=== PATIENT | male | born 1970 | race Caucasian/White ===

== ENCOUNTER 2016-11-03 07:39 | Day surgery (SDC) | payer OTHER ==
[~2016-11-03] VITALS: Ht 165.1 cm; Wt 65.0 kg
[2016-11-03] VITALS (14 sets, daily range): BP systolic 120–147; BP diastolic 80–93; PULSE 66–78; RESP 11–20; Ht 165.1 cm; Wt 65.0 kg
[~2016-11-03 07:39] MED LIST: CEFAZOLIN 2 GM/50 ML (PMX) 50 ML IVPB ONE; SOD CHLORIDE 0.9% 1,000 ML IV ONE
[2016-11-03] MEDS ORDERED: IBUP-1542 PO (08:21)
[2016-11-03] MEDS ORDERED: LIDOCAINE 2% (SDV) 5 ML INJ ONE (09:32)
[2016-11-03] MEDS ORDERED: MIDAZOLAM 1 MG/ML 2 ML INJ ONE (09:32)
[2016-11-03] MEDS ORDERED: PROPOFOL 20 ML ONE (09:32)
[2016-11-03] MEDS ORDERED: FENTAnyl 50 MCG/ML VIAL ONE (09:32)
[2016-11-03] MEDS ORDERED: BUPIVACAINE 0.25% (MPF) 10 ML 10 ML VIAL ONE ×2 (09:59→10:10)
[2016-11-03] MEDS ORDERED: ONDANSETRON 4 MG INJ IV PRN (10:00)
[2016-11-03] MEDS ORDERED: FENTAnyl 50 MCG/ML VIAL IV PRN (10:00)
[2016-11-03] MEDS ORDERED: OXYCODONE/ACETAMINOPHEN (5/325) TAB PO PRN ×2 (10:00)
[2016-11-03] MEDS ORDERED: DIPHENHYDRAMINE 50 MG INJ IV PRN (10:00)
[2016-11-03] MEDS ORDERED: MEPERIDINE 25 MG INJ IV PRN (10:00)
[2016-11-03] MEDS ORDERED: PROCHLORPERAZINE 10 MG INJ IV PRN (10:00)
[2016-11-03] MEDS ORDERED: HYDROmorphONE (0.2 MG/ML) 10ML SYG IV PRN ×2 (10:00)
[2016-11-03] MEDS ORDERED: CEFAZOLIN 1 GM INJ ONE (10:19)
[2016-11-03] MEDS ORDERED: METOCLOPRAMIDE 10 MG INJ ONE (10:19)
[2016-11-03] MEDS ORDERED: ONDANSETRON 4 MG INJ ONE (10:19)
[2016-11-03] MEDS ORDERED: KETOROLAC 30 MG INJ ONE (10:19)
--- NOTE | 2016-11-03 11:08 | OPR ---
Date/Time of Note Date/Time of Note DATE: 11/03/16 TIME: 11:04 Operative Report Procedure Date: Nov 03, 2016 Preoperative Diagnosis left inguinal hernia Postoperative Diagnosis same Operation Performed 1. open left inguinal hernia repair with ultrapro hernia system small sized mesh 2. localized adjacent tissue transfer with the use of skin flaps 18 sq cm defect 3. therapeutic injection of subcutaneous marcaine cpt code 22664 Anesthesia Type: general Estimated Blood Loss: minimal Specimen: none Grafts/Implants ultrapro hernia system mesh small size Complications: no Indications This is a 38-year-old male with a left inguinal hernia. He requires surgical repair. Risks alternatives benefits and percent were discussed with patient. Patient expresses understanding and consents to the operation. Procedure Description Patient is taken to the OR and prepped and draped in usual sterile fashion. Surgical timeout is performed. IV antibiotics given. Left inguinal oblique incision is made with a 10 blade. Dissection cautery was carried down to the extremity fascia. The extremity fascia is open with a 15 blade. This incision is extended medially inferiorly lateral superiorly with Metzenbaum scissors. Cord structures identified and encircled with a [place] drain. Indirect hernia is identified and reduced. The disc portion of the ultra pro hernia system mesh was used to bolster this area. The disc is secured in place with a running 1 Prolene from the pubic tubercle along the shelving edge of the inguinal ligament. Superiorly the disc portion of the mesh is secured to the internal oblique with interrupted 3-0 Vicryl. Onlay mesh is secured in similar fashion with a running 1 Prolene from the pubic tubercle along the shelving edge of the inguinal ligament. Straps are created and reapproximated around the cord structures to recreate the inguinal ring with interrupted #1 Prolene. The onlay mesh was secured to the internal oblique with interrupted 3-0 Vicryl. Externally fascia is closed with a running 3-0 Vicryl. Jeanne's fascia was closed with interrupted 3-0 Vicryl. Skin is closed using skin riki. Therapeutic subcutaneous Marcaine is injected throughout the incision site. Dry dressings were applied. Kaushal HORNER Nov 03, 2016 11:08
[2016-11-03] MEDS ORDERED: HYDROCODONE/APAP (5/325) TAB PO ONE (11:30)
== END 2016-11-03 13:45 | disposition home or self-care (01) ==
LOC: SDS 07:39
PROVIDERS: ATTEND Surgery
DX: K40.90 Unilateral inguinal hernia, without obstruction or gangrene, not specified as recurrent (principal); M19.90 Unspecified osteoarthritis, unspecified site; E78.5 Hyperlipidemia, unspecified
CPT/HCPCS: 49505; C1781; J0690; J1885; J2250; J2405; J2765; J3010; Z7512; Z7610

== ENCOUNTER 2016-12-08 08:58 | Day surgery (SDC) | payer OTHER ==
[~2016-12-08] VITALS: Ht 167.6 cm; Wt 66.6 kg
[2016-12-08] VITALS (14 sets, daily range): BP systolic 111–141; BP diastolic 71–86; PULSE 64–80; RESP 13–18; Ht 167.6 cm; Wt 66.6 kg
[~2016-12-08 08:58] MED LIST changes: -CEFAZOLIN 2 GM/50 ML (PMX) 50 ML IVPB ONE; +IBUP-1542 PO; -SOD CHLORIDE 0.9% 1,000 ML IV ONE
[2016-12-08] MEDS ORDERED: CEFAZOLIN 2 GM/50 ML (PMX) 50 ML IVPB ONE (10:00)
[2016-12-08] MEDS ORDERED: SOD CHLORIDE 0.9% 1,000 ML IV ONE (10:00)
[2016-12-08] MEDS ORDERED: ROPIVACAINE 0.5 % 30 ML VIAL ONE (10:27)
[2016-12-08] MEDS ORDERED: FENTAnyl 50 MCG/ML VIAL ONE (10:27)
[2016-12-08] MEDS ORDERED: ROCURONIUM 50 MG INJ ONE (10:27)
[2016-12-08] MEDS ORDERED: PROPOFOL 20 ML ONE (10:27)
[2016-12-08] MEDS ORDERED: MIDAZOLAM 1 MG/ML 2 ML INJ ONE (10:27)
[2016-12-08] MEDS ORDERED: POLYMYXIN/BACITRACIN 1L IRRIG ONE (10:50)
[2016-12-08] MEDS ORDERED: BUPIVACAINE 0.25% (MPF) 30 ML INJ ONE (10:50)
[2016-12-08] MEDS ORDERED: KETOROLAC 30 MG INJ ONE (11:11)
[2016-12-08] MEDS ORDERED: METOCLOPRAMIDE 10 MG INJ ONE (11:11)
[2016-12-08] MEDS ORDERED: CEFAZOLIN 1 GM INJ ONE (11:11)
[2016-12-08] MEDS ORDERED: DEXAMETHASONE 4 MG/ML 1 ML INJ ONE (11:11)
[2016-12-08] MEDS ORDERED: ONDANSETRON 4 MG INJ ONE ×2 (11:11→12:17)
[2016-12-08] MEDS ORDERED: NEOSTIGMINE 3 MG/3 ML SYRINGE ONE (11:54)
[2016-12-08] MEDS ORDERED: GLYCOPYRROLATE 0.4 MG INJ ONE (11:54)
[2016-12-08] MEDS ORDERED: DIPHENHYDRAMINE 50 MG INJ IV PRN (12:00)
[2016-12-08] MEDS ORDERED: hydrALAzine 20 MG INJ IV PRN (12:00)
[2016-12-08] MEDS ORDERED: OXYCODONE/ACETAMINOPHEN (5/325) TAB PO PRN ×2 (12:00)
[2016-12-08] MEDS ORDERED: HYDROCODONE/APAP (5/325) TAB PO ONE (12:00)
[2016-12-08] MEDS ORDERED: EPHEDrine SULFATE 50 MG/5 ML SYG IV PRN (12:00)
[2016-12-08] MEDS ORDERED: HYDROmorphONE (0.2 MG/ML) 10ML SYG IV PRN ×3 (12:00)
[2016-12-08] MEDS ORDERED: METOCLOPRAMIDE 10 MG INJ IV PRN (12:00)
[2016-12-08] MEDS ORDERED: FENTAnyl 50 MCG/ML VIAL IV PRN ×3 (12:00)
[2016-12-08] MEDS ORDERED: MEPERIDINE 25 MG INJ IV PRN (12:00)
[2016-12-08] MEDS ORDERED: LABETALOL HCL 20MG INJ IV PRN (12:00)
[2016-12-08] MEDS ORDERED: ONDANSETRON 4 MG INJ IV PRN (12:00)
--- NOTE | 2016-12-08 12:01 | SIPON ---
Date/Time of Note Date/Time of Note DATE: 12/08/16 TIME: 12:00 Operative Report Preoperative Diagnosis RI Postoperative Diagnosis large incarcerated [facility] Operation/Procedure Performed 1. open right incarcerated inguinal hernia repair with ultrapro large mesh 2. 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
[2016-12-08] MEDS ORDERED: MEPERIDINE 25 MG INJ ONE (12:17)
--- NOTE | 2016-12-08 13:14 | OPR ---
DATE OF OPERATION: 12/08/2016 SURGEON: Emmanuelle Coley MD. INDICATION: This is a 46-year-old male with a very large right incarcerated inguinal hernia. He requested surgical repair. Risks, alternatives, benefits of procedure were discussed with the patient. Patient expresses understanding and consents to the operation. The potential complications include, but are not limited to bleeding, infection, mesh infection, recurrence of hernia and need for reoperation, chronic pain and possibly were discussed with the patient. Patient expressed understanding and consents to the operation. PREOPERATIVE DIAGNOSIS: Large incarcerated right inguinal hernia. POSTOPERATIVE DIAGNOSIS: Large incarcerated right inguinal hernia. OPERATION PERFORMED: 1. Open incarcerated right inguinal hernia repair with large size Ultrapro hernia system mesh. 2. Therapeutic subcutaneous injection of Marcaine. SPECIMENS: None. COMPLICATIONS: None. ANESTHESIA: General. ESTIMATED BLOOD LOSS: 15 mL. OPERATIVE PROCEDURE: The patient taken to the OR, prepped and draped in usual sterile fashion. Surgical time-out was performed. IV antibiotics were given. Right inguinal oblique incision was made with a 10 blade. Dissection cautery was carried down to the external oblique fascia. Upon examination there was a large direct inguinal hernia that was incarcerated. Additionally, the floor of the inguinal hernia was completely obliterated by the direct inguinal hernia. This was manually reduced. Cord structures identified and encircled with a [place] drain. The direct space was reinforced with the distal portion of the Ultrapro hernia system mesh. This was secured in place by running a #0 Prolene for the pubic tubercle along the shelving edge of the inguinal ligament, and superiorly to the internal oblique with interrupted #3-0 Vicryl. Onlay mesh was secured in a similar fashion with a running #0 Prolene for the pubic tubercle along the shelving edge of inguinal ligament, and superiorly to the internal oblique with interrupted #3-0 Vicryl. External oblique fascia was closed with a running #3-0 Vicryl. Jeanne's fascia was closed with interrupted #3-0 Vicryl. The skin was closed using skin riki. Therapeutic subcutaneous Marcaine is injected throughout the incision. Dry dressings were applied. Dictated By: Breezy Rincon /bubba/ac /Document#: [id number]
== END 2016-12-08 14:45 | disposition home or self-care (01) ==
LOC: SDS 08:58
PROVIDERS: ATTEND Surgery
DX: K40.30 Unilateral inguinal hernia, with obstruction, without gangrene, not specified as recurrent (principal)
CPT/HCPCS: 49507; C1781; J0690; J1100; J1885; J2175; J2250; J2405; J2710; J2765; J2795; J3010; Z7512; Z7610